=== PATIENT | male | born 2000 | race Caucasian/White ===

== ENCOUNTER 2024-02-08 20:16 | Emergency (ER) | payer OTHER, SELFPAY ==
[2024-02-08 20:21] VITALS: BP 128/75
[2024-02-08 20:39] LABS: Urine Albumin Trace (Neg - Trace); Urine Bilirubin Negative (Negative); Urine Character Clear (Clear); Urine Color Yellow; Urine Glucose Negative (Negative); Urine Ketone Negative (Negative); Urine Leukocyte Trace (Negative); Urine Nitrite Negative (Negative); Urine Occult Blood 4+ (Negative); Urine Specific Gravity 1.015 (<1.030); Urine Urobilinogen Negative (Neg - 1+)
[2024-02-08 20:43] LABS: % Basophils 0.3 % (0-2); % Immature Granulocytes 0.5 % (0-0.5); % Monocytes 5.8 % (1.7-9.3); % Neutrophils 85.4 % (42.2-75.2); Absolute Immature Granulocytes 0.1 10^3/uL (0-0.05); Absolute Lymphocytes 1.1 10^3/uL (1.2-3.4); Absolute Monocytes 0.8 10^3/uL (0.1-0.6); Absolute Neutrophils 12.1 10^3/uL (1.4-6.5); Hematocrit 41.9 % (39.0-52.0); Hemoglobin 14.7 g/dL (13.0-18.0); Mean Corp Hgb Conc. 35.1 g/dL (33.0-37.0); Mean Corpuscular Hgb 29.5 pg (27.0-31.0); Mean Corpuscular Volume 84.1 fL (80.0-94.0); Mean Platelet Volume 9.8 fL (7.4-10.4); Nucleated Red Blood Cells % 0 % (-); Platelet Count 255 10^3/uL (130-400); Red Blood Cell Count 4.98 10^6/uL (4.70-6.10); Red Cell Dist. Width 11.9 % (11.5-14.5); White Blood Cell Count 14.2 10^3/uL (4.8-10.8)
[2024-02-08 20:48] LABS: Urine Mucus Few; Urine Squamous Cell 0-2 /LPF (Few)
[2024-02-08 20:49] LABS: Urine Bacteria Moderate (Negative); Urine Red Blood Cell 70-80 /HPF (0-2); Urine White Cell 0-2 /HPF (0-5)
[2024-02-08 20:55] LABS: ALT (SGPT) 41 U/L (0-50); AST (SGOT) 31 U/L (17-59); Albumin 5.1 g/dl (3.5-5.0); Alkaline Phosphatase 55 U/L (38-126); Blood Urea Nitrogen 15 mg/dl (9-20); Calcium 9.7 mg/dl (8.4-10.2); Carbon Dioxide 28 mmol/L (22-30); Chloride 99 mmol/L (98-107); Glucose 125 mg/dl (70-99); Potassium 4.3 mmol/L (3.5-5.1); Sodium 138 mmol/L (135-145); Total Bilirubin 0.5 mg/dl (0.2-1.3); Total Protein 7.8 g/dl (6.3-8.2); eGFR > 60.00
--- NOTE | 2024-02-08 21:29 | ED.GENMED ---
History of Present Illness
General
Chief Complaint: Flank Pain
Time Seen by Provider: 02/08/24 21:29
History of Present Illness
History of Present Illness:
TIME OF INITIAL ENCOUNTER: 9:30 PM
HPI: Earlier this morning, the patient had left testicular pain. This progressed into left flank pain that became rather severe in the afternoon. He took 800 mg of ibuprofen and then felt somewhat improved. He had some waves of nausea. Pain
persisted so he came in here for further evaluation.
EXAM:
GENERAL: Well appearing in no distress
HEENT: Moist oral mucosa
CARDIOVASCULAR: No murmurs, normal heart rate, regular rhythm, No chest wall tenderness
PULMONARY: No respiratory distress, breath sounds are clear and equal
ABDOMEN: Soft with no peritoneal signs, no tenderness, mild left CVA tenderness
: Very mild left circular tenderness
NEUROLOGIC: Excellent strength all extremities, no coordination deficits
PSYCHIATRIC: Appropriate mental status, normal insight and judgement
EXTREMITIES: Nontender, no edema, moves all extremities equally
SKIN: No rash, no lesions
NUMBER AND COMPLEXITY OF PROBLEMS ADDRESSED AT THE ENCOUNTER
� Chronic conditions affecting care: No significant past medical history
� Acute Exacerbation and/or Progression of Chronic Illness: This is an acute problem
� Differential Diagnosis includes: Ureteral stone, ureteral colic, UTI, hemorrhagic cystitis, infected stone, testicular torsion very unlikely as the patient does have a ureteral stone on the left side
AMOUNT AND/OR COMPLEXITY OF DATA TO BE REVIEWED AND ANALYZED
� I performed an independent evaluation of and my interpretation is:
EKG:
CT: CT imaging personally reviewed and I agree with radiologist interpretation of the distal 2 mm left ureteral stone
X-rays:
Laboratory Studies: White count 14.2, hemoglobin normal, unremarkable chemistries, urinalysis shows 4+ blood with no clear sign of infection
Other:
� Review of other/old records: No old records available for review
� Clinical information was obtained by an independent historian: I spoke to mother and at bedside
� Prescriptions/Medications Considered but not given: Offered and considered narcotic analgesia however the patient ultimately declined
� Further testing considered but not performed:
RISK OF COMPLICATIONS AND/OR MORBIDITY OR MORTALITY OF PATIENT MANAGEMENT
� Social determinants of health affecting care: Lives at home
� Discussion with other providers:
� Escalation of care including admission/observation vs risk of discharge considered: The patient was given Toradol with only minimal improvement initially. He was given IV fluids and then pain continued to improve.
ANY OTHER UPDATES:
10:50 PM: I reassessed patient and he now appears significantly improved. He feels better. Will discharge and I have also given him contact information for local urologist.
Phy Exam
Physical Exam
Physical Exam:
See HPI
Course
Orders/Labs/Results
Orders:
Orders
02/08/24 20:32
Complete Blood Count/With Diff Urgent
Comprehensive Metabolic Panel Urgent
Urinalysis Urgent
Date Specimen was Collected: 02/08/24
Time Specimen was Collected: 20:19
Urine Microscopic Urgent
Date Specimen was Collected: 02/08/24
Time Specimen was Collected: 20:19
02/08/24 21:29
CT Abd/pel Without Iv Or Oral Urgent
Comment:
Reason For Exam: L flank pain
02/08/24 21:34
0.9% Sodium Chloride 1000 ml [Nss] 1,000 ml IV BOLUS
Ketorolac [Toradol] 15 mg IV NOW STA
Ondansetron Injectable [Zofran] 4 mg IV NOW STA
02/08/24 22:17
HYDROmorphone [Dilaudid] 1 mg IV NOW STA
02/08/24 22:37
Tamsulosin [Flomax] 0.4 mg PO NOW STA
Abnormal Lab Results
02/08/24
20:32
WBC 14.2 H 10^3/uL
(4.8-10.8)
Abs Immat Gran (auto) 0.1 H 10^3/uL
(0-0.05)
Absolute Neuts (auto) 12.1 H 10^3/uL
(1.4-6.5)
Absolute Lymphs (auto) 1.1 L 10^3/uL
(1.2-3.4)
Absolute Monos (auto) 0.8 H 10^3/uL
(0.1-0.6)
Neutrophils % 85.4 H %
(42.2-75.2)
Lymphocytes % 8.0 L %
(20.5-51.1)
Glucose 125 H mg/dl
(70-99)
Albumin 5.1 H g/dl
(3.5-5.0)
Urine Occult Blood 4+ A
(Negative)
Ur Leukocyte Esterase Trace A
(Negative)
Urine RBC 70-80 A /HPF
(0-2)
Urine Bacteria Moderate A
(Negative)
02/08/24 20:32
02/08/24 20:32
Vital Signs
Initial and Last Documented VS:
Initial Vital Signs
Temp Pulse Resp BP Pulse Ox
37.1 C 89 18 128/75 98
02/08/24 20:21 02/08/24 20:21 02/08/24 20:21 02/08/24 20:21 02/08/24 20:21
Last Documented Vital Signs
Temp Pulse Resp BP Pulse Ox
37.1 C 89 18 128/75 98
02/08/24 20:21 02/08/24 20:21 02/08/24 20:21 02/08/24 20:21 02/08/24 20:21
*Critical Care Note
Total Time (30-74mins, 75-104mins- exclusive of procedures): Not Applicable
ED Attending Note
-
Portions of this chart may have been created with voice recognition software.� Occasional wrong word or��sound alike� substitutions may have occurred due to the inherent limitations of voice recognition software.
Discharge Plan
Departure
Patient Disposition: Home (Routine Discharge)
Date of Disposition: 02/08/24
Time of Disposition: 22:47
Patient with high blood pressure during this ER visit?: Yes
Discharge Problem:
Ureteral calculus, left
Instructions: Kidney Stones (DC), How to Strain Your Urine, BLOOD PRESSURE, Narcotic Pain Medication
Prescriptions:
New
oxycodone-acetaminophen [Percocet] 5-325 mg tablet
1 - 2 tab PO Q6HPRN PRN (Reason: pain) Qty: 14 0RF
ondansetron HCl 4 mg tablet
4 mg PO Q8H PRN (Reason: nausea and vomiting) Qty: 14 0RF
tamsulosin [Flomax] 0.4 mg capsule
0.4 mg PO DAILY Qty: 14 0RF
Referrals:
Clayton Shell MD [Active] - Follow up in 2-3 days
NONE,* [Family Provider] -
Activity Restrictions/Additional Instructions:
Please follow-up with a urologist such as Dr. Shell. I recommend 3-4 [id number] ibuprofen (Motrin) every 8 hours with food for a few days. Return here if worse. If you take Percocet, I recommend you take something like MiraLAX to help
prevent constipation. The urinalysis shows blood which is expected with kidney stones�there is no sign of a urinary tract infection. Your white blood cell count in your bloodstream is high but this is commonly seen just related to pain. The CAT
scan shows a 2 mm in the distal left ureter. I recommend that you strain your urine each time you urinate until you see the stone.
Interventions
Interventions:
*Risk Screen - Suicide Last Done: 02/08/24 20:17
*Neglect/Abuse Screening Last Done: 02/08/24 20:17
*ED COVID-19 Vaccine History Last Done: 02/08/24 20:21
Discharge Date and Time
Print Language: GUYANESE
[2024-02-08] MEDS: TORADOL 15 MG IV (21:43)
[2024-02-08] MEDS: ZOFRAN 4 MG IV (21:43)
[2024-02-08] MEDS: NSS 1000 IV (21:44)
[2024-02-08 22:53] VITALS: BP 117/62
[2024-02-08] MEDS: FLOMAX 0.4 MG PO (22:55)
== END 2024-02-08 23:13 | disposition home or self-care (01) ==
LOC: EMR 20:16
PROVIDERS: Emergency Medicine; EMERGENCY PHYSICIAN Emergency Medicine
DX: N13.2 Hydronephrosis with renal and ureteral calculous obstruction (principal); N50.812 Left testicular pain
CPT/HCPCS: 96374; 96375; 96361; 99284; 74176; 80053; 81003; 81015; 85025